=== PATIENT | female | born 1950 | race Caucasian/White ===

== ENCOUNTER 2017-11-03 06:21 | Day surgery (SDC) | payer MEDICARE, BC ==
[2017-11-02 16:10] VITALS: BMI 27.1
--- NOTE | 2017-11-03 05:48 | HP ---
DATE OF ADMISSION: 11/03/2017 HISTORY OF PRESENT ILLNESS: This is a 67-year-old female with family history of colon cancer. Father had colon cancer. The patient has chronic acid reflux and also has history of IBS . The patient comes for colonoscopy for colon cancer screening. ALLERGIES: LATEX, KEFLEX, IV CONTRAST. MEDICAL ILLNESSES: 1. Hyperlipidemia. 2. Chronic acid reflux. 3. IBS. 4. Anxiety. 5. Colon polyp. 6. Breast lump. PHYSICAL EXAMINATION: VITAL SIGNS: Pulse is 70, blood pressure 140/80. HEENT: Conjunctivae clear. CARDIOVASCULAR: First and second heart sounds. LUNGS: Clear to auscultation. ABDOMEN: Soft to palpate. Abdomen is nontender. There is no organomegaly or masses. Bowel sounds are normal. ADMITTING DIAGNOSES: A 67-year-old female with family history of colon cancer and personal history of colon polyp. PLAN: Colonoscopy. MARYLIN
--- NOTE | 2017-11-03 10:17 | OP ---
DATE OF PROCEDURE: 11/03/2017 PREOPERATIVE DIAGNOSIS: A 67-year-old female with family history of colon cancer and also personal history of colon polyp. The patient is undergoing colonoscopy. POSTOPERATIVE DIAGNOSES: 1. Sigmoid diverticular disease. 2. Hemorrhoids. 3. Tortuous sigmoid colon. OPERATIVE PROCEDURE: Colonoscopy. PROCEDURE NOTE: The patient was placed on her left lateral position and was given sedation by Anesth esia Department. A rectal exam was done before the scope was advanced into the rectum. Patient foun d hemorrhoids. No other lesions were felt. A [employer] video colonoscope was introduced into the rectu m and advanced all the way into the cecum. The patient had a very tortuous and redundant sigmoid col on area. The mucosa appeared normal throughout the colon with normal vascular pattern. The appendic eal orifice, ileocecal valve, and cecum, no pathology seen. Withdrawal of scope from the cecum to th e ascending colon, hepatic flexure, transverse colon, splenic flexure, and descending colon, no patho logy seen. The sigmoid colon showed scattered diverticular disease. Retroflexion of the scope in th e rectum showed hemorrhoids. DISCHARGE PLANNING: This is a 67-year-old female with history of colon polyps and also fam josé history of colon cancer. The patient came in for colonoscopy. The colonoscopy showed hemorrhoid s and sigmoid diverticulosis. DISCHARGE RECOMMENDATIONS: 1. The patient advised to call me if she develops abdominal pain, hematochezia or fever. 2. High-fiber diet. 3. Metamucil. 4. Because she has high risk for colon cancer, repeat colonoscopy in 3 years.
[2017-11-03] MEDS ORDERED: Lidocaine 1% PF 5 ML VIAL ONE (15:06)
[2017-11-03] MEDS ORDERED: PROPOFOL 200 MG/20 ML VIAL ONE (15:06)
== END 2017-11-03 10:00 | disposition home or self-care (01) ==
LOC: SDC 06:21
PROVIDERS: ATTEND Internal Medicine Gastroenterology
PROC: 0DJD8ZZ Inspection of Lower Intestinal Tract, Via Natural or Artificial Opening Endoscopic (ICD-10-PCS; principal; 2017-11-03)
DX: Z12.11 Encounter for screening for malignant neoplasm of colon (principal); K57.30 Diverticulosis of large intestine without perforation or abscess without bleeding; Q43.8 Other specified congenital malformations of intestine; K64.9 Unspecified hemorrhoids; E78.5 Hyperlipidemia, unspecified; K58.9 Irritable bowel syndrome, unspecified; F41.9 Anxiety disorder, unspecified; K21.9 Gastro-esophageal reflux disease without esophagitis; Z88.1 Allergy status to other antibiotic agents; Z91.040 Latex allergy status; Z91.041 Radiographic dye allergy status; Z79.899 Other long term (current) drug therapy; Z90.710 Acquired absence of both cervix and uterus; Z98.890 Other specified postprocedural states; Z87.19 Personal history of other diseases of the digestive system; Z80.0 Family history of malignant neoplasm of digestive organs
CPT/HCPCS: J2001; J2704

== ENCOUNTER 2023-09-04 15:24 | Outpatient (CLI) | payer MEDICARE | END 2023-09-04 15:25 | disposition home or self-care (01) | LOC: ULT 15:24 | PROVIDERS: ATTEND Internal Medicine Cardiovascular Disease | DX: R29.898 Other symptoms and signs involving the musculoskeletal system (principal); R94.39 Abnormal result of other cardiovascular function study | CPT/HCPCS: 93923 ==

== ENCOUNTER 2023-09-23 12:21 | Outpatient (CLI) | payer MEDICARE ==
[~2023-09-23 12:21] MED LIST: Iopamidol 370 76% 100 ML VIAL ONE
== END 2023-09-23 12:22 | disposition home or self-care (01) ==
LOC: CT 12:21
PROVIDERS: ATTEND Internal Medicine Cardiovascular Disease
DX: M79.601 Pain in right arm (principal)
CPT/HCPCS: 82565